=== PATIENT | male | born 1965 | race Caucasian/White ===

== ENCOUNTER 2017-09-12 06:00 | Observation (INO) | payer BC ==
[~2017-09-12 06:00] MED LIST: ACETAMINOPHEN 325 MG TAB PO PRN; AZIT250T3 PO; BISACODYL 10 MG SUPP RECTAL PRN; LACTULOSE SYRUP 20 GM/30 ML CUP PO PRN; LISI10TA PO; MAGNESIUM HYDROXIDE SUSP 30 ML CUP PO PRN; METH4PAK PO; NALOXONE HCL 0.4 MG/ML AMP IV PUSH PRN; ONDANSETRON HCL 4 MG/2 ML VIAL IVP PRN; SENNOSIDES 8.6 MG TAB PO PRN; SODIUM CHLORIDE 0.9% FLUSH 10 ML FLUSH IV FLUSH PRN; TRIMSOL EACH EYE; VENTAER INH
[2017-09-12 07:25] VITALS: BP 119/69; PULSE 77; RESP 18; TEMP 97.8; O2SAT 94
[2017-09-12] MEDS ORDERED: DOCUSATE SODIUM 50 MG/SENNA 8.6 MG TAB PO SCH (09:00)
[2017-09-12] MEDS ORDERED: SODIUM CHLORIDE 0.9% FLUSH 10 ML FLUSH IV FLUSH SCH (09:00)
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
[2017-09-12 11:54] VITALS: BP 119/68; PULSE 86; RESP 18; TEMP 97.5; O2SAT 94
--- NOTE | 2017-09-12 12:14 | ECHRPT ---
Indication: CONCLUSIONS Mildly dilated left ventricle. Wall thickness is normal. The left ventricular systolic function is normal with an estimated ejection fraction in the range of 60-65%. BP: / HR: Rhythm: MEASUREMENTS (Male / Female) Normal Values Technical Quality: 2D ECHO LV Diastolic Diameter PLAX 5.3 cm 4.2 - 5.9 / 3.9 - 5.3 cm LV Systolic Diameter PLAX 3.9 cm IVS Diastolic Thickness 1.1 cm 0.6 - 1.0 / 0.6 - 0.9 cm LVPW Diastolic Thickness 0.9 cm 0.6 - 1.0 / 0.6 - 0.9 cm LV Relative Wall Thickness 0.4 RV Internal Dim ED PLAX 2.6 cm LA Systolic Diameter LX 3.8 cm 3.0 - 4.0 / 2.7 - 3.8 cm DOPPLER Mitral E Point Velocity 104.0 cm/s Mitral A Point Velocity 72.2 cm/s Mitral E to A Ratio 1.4 TR Peak Velocity 274.0 cm/s TR Peak Gradient 30.0 mmHg FINDINGS LEFT VENTRICLE Mildly dilated left ventricle. Wall thickness is normal. The left ventricular systolic function is normal with an estimated ejection fraction in the range of 60-65%. RIGHT VENTRICLE Normal right ventricular size and systolic function. LEFT ATRIUM The left atrial size is normal. RIGHT ATRIUM The right atrial size is normal. ATRIAL SEPTUM Normal atrial septal thickness without atrial level shunting by limited color doppler interrogation. AORTA The aortic root and proximal ascending aorta are normal in size on limited imaging. MITRAL VALVE Structurally normal mitral valve. No mitral valve stenosis or regurgitation. AORTIC VALVE Trileaflet aortic valve. No aortic valve stenosis or regurgitation. TRICUSPID VALVE Structurally normal tricuspid valve. No tricuspid valve stenosis or regurgitation. PULMONARY VALVE The pulmonary valve is not well visualized. VESSELS The inferior vena cava is normal in size. PERICARDIUM No pericardial effusion. Ervin Huff MD, FACC, [facility] [place] [facility] (Electronically Signed) Final Date:12 September 2017 12:12
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
[2017-09-12] MEDS ORDERED: PRED10 PO (13:42)
[2017-09-12] MEDS ORDERED: ADVA250A INH (13:42)
[2017-09-12] MEDS ORDERED: MONT10TA2 PO (13:42)
[2017-09-12] MEDS ORDERED: BENZ100 PO (13:42)
[2017-09-12] MEDS ORDERED: CLIN300C5 PO (13:43)
== END 2017-09-12 18:30 | disposition home or self-care (01) ==
LOC: NEDDLT 06:00 → NEPGCP 06:10
PROVIDERS: ADMIT Family Medicine; ATTEND Internal Medicine
DX: R55 Syncope and collapse (principal); E86.0 Dehydration; R05 Cough; S02.92XA Unspecified fracture of facial bones, initial encounter for closed fracture; W18.39XA Other fall on same level, initial encounter; J40 Bronchitis, not specified as acute or chronic; I10 Essential (primary) hypertension; R51 Headache; H53.149 Visual discomfort, unspecified; S01.81XA Laceration without foreign body of other part of head, initial encounter; Z82.49 Family history of ischemic heart disease and other diseases of the circulatory system; I82.403 Acute embolism and thrombosis of unspecified deep veins of lower extremity, bilateral; Z23 Encounter for immunization; Z79.899 Other long term (current) drug therapy
CPT/HCPCS: 12013; 70450; 70486; 71045; 72125; 80053; 80307; 81001; 82550; 82552; 84484; 85025; 90471; 90715; 93005; 93306; 93880; 96365; 99285; G0378; J2930